=== PATIENT | male | born 1935 | race Caucasian/White ===

== ENCOUNTER 2020-02-22 16:04 | Inpatient (IN) | payer MEDICARE ==
[~2020-02-22] VITALS: Ht 175.3 cm; Wt 98.4 kg
[~2020-02-22 16:04] MED LIST: ASPI-1053 PO; CALC-336 PO; CHOL100024 PO; FINA5TAB11 PO; LISI-604 PO; MULT-1085 PO; SIMV-42 PO; TERA10CA4 PO; UBID1CAP54 PO
[2020-02-22 17:54] LABS: BASOPHILS # (AUTO) 0.1 X10'3 (0-0.2); BASOPHILS % (AUTO) 0.7 % (0-1); EOSINOPHILS # (AUTO) 0.1 X10'3 (0-0.9); EOSINOPHILS % (AUTO) 1.8 % (0-6); HEMATOCRIT 49.1 % (42.0-52.0); HEMOGLOBIN 16.1 g/dl (14.0-17.9); LYMPHOCYTES # (AUTO) 0.7 X10'3 (1.1-4.8); LYMPHOCYTES % (AUTO) 8.8 % (21-51); MEAN CORPUSCULAR HEMOGLOBIN 30.4 PG (27.0-31.0); MEAN CORPUSCULAR HGB CONC 32.7 g/dL (33.0-36.5); MEAN CORPUSCULAR VOLUME 92.9 FL (78-98); MONOCYTES # (AUTO) 0.5 X10'3 (0-0.9); NEUTROPHILS # (AUTO) 6.3 X10'3 (1.8-7.7); NEUTROPHILS % (AUTO) 81.7 % (42-75); PLATELET COUNT 151 X10'3 (140-440); RED BLOOD COUNT 5.29 X10'6 (4.70-6.10); WHITE BLOOD COUNT 7.7 X10'3 (4.5-11.0)
[2020-02-22 18:16] LABS: ANION GAP 4 (8-16); BLOOD UREA NITROGEN 18 MG/DL (7-18); BUN/CREATININE RATIO 14.2 (5.4-32.0); C-REACTIVE PROTEIN 1.06 MG/DL (0.0-0.5); CALCIUM 9.7 MG/DL (8.5-10.1); CHLORIDE 107 MMOL/L (99-107); CREATININE 1.27 MG/DL (0.60-1.10); GLUCOSE 109 MG/DL (70-104); POTASSIUM 4.4 MMOL/L (3.5-5.1); SODIUM 144 MMOL/L (135-145); eGFR 54 ML/MIN
[2020-02-22] MEDS ORDERED: CefTRIAXone/D5W-Rocephin 1gm 50 ML IV ONE (19:00)
[2020-02-22] MEDS ORDERED: vancomycin/NS 1 GM ADD-VANTAGE 250 ML IV ONE (19:00)
--- NOTE | 2020-02-22 19:09 | NUR ---
patient being admitted , patient does not have med list verbalized has new phone that patient does not know and she would have the list called only phone # available [phone] went to [facility] it was full could not leave a message dr. mills aware
[2020-02-22] MEDS ORDERED: WARF3TAB8 PO (20:04)
[2020-02-22] MEDS ORDERED: mag hydrox/Alum hydrox/simeth 30ml oral suspension PO PRN (20:55)
[2020-02-22] MEDS ORDERED: acetaminophen 325mg tablet PO PRN (20:55)
[2020-02-22] MEDS ORDERED: potassium CL 10mEq/100ml bag 100 ML IV PRN ×2 (20:55)
[2020-02-22] MEDS ORDERED: magnesium hydroxide 30ml (MOM) UD suspension PO PRN (20:55)
[2020-02-22] MEDS ORDERED: potassium Cl 20 mEq SR tablet PO PRN (20:55)
[2020-02-22] MEDS ORDERED: ondansetron/PF 4mg/2ml inj IV PRN (20:55)
--- NOTE | 2020-02-22 21:48 | NUR ---
patient belongings glassess,cane,shoes shirt ,shorts ,plastic cards,watch
[2020-02-22 22:00] VITALS: BP 118/78
--- NOTE | 2020-02-23 06:57 | NUR ---
Patient in room [facility]. I have received report from night nurse walt and had the opportunity to ask questions and assume patient care.
[2020-02-23 08:00] VITALS: BP 116/73
[2020-02-23] MEDS ORDERED: warfarin 3mg tablet PO SCH (08:00)
[2020-02-23] MEDS ORDERED: heparin, porcine 5000 units/ml vial SQ SCH (08:00)
[2020-02-23] MEDS: K and/or MAG REPLACEMENT MC SCH ×2 (08:00→20:00)
[2020-02-23] MEDS: atorvastatin 10mg tablet PO SCH (08:00)
[2020-02-23] MEDS ORDERED: UBIDECARENONE PO SCH (08:00)
[2020-02-23] MEDS ORDERED: VIT E ACETATE PO SCH (08:00)
[2020-02-23] MEDS: furosemide 10 MG/1 ML 10ml inj IV SCH ×2 (08:30→20:31)
[2020-02-23] MEDS: calcium carbonate 500mg tablet PO SCH (08:33)
[2020-02-23] MEDS: cephalexin 250mg capsule PO SCH ×4 (08:33→21:55)
[2020-02-23] MEDS: multivitamins, therapeutics tablet PO SCH (08:33)
[2020-02-23] MEDS: terazosin 5mg capsule PO SCH (08:33)
[2020-02-23] MEDS: lisinopril 10 MG tablet PO SCH (08:34)
[2020-02-23] MEDS: vitamin D (cholecalciferol) 1,000 unit tablet PO SCH (08:34)
--- NOTE | 2020-02-23 09:15 | NUR ---
Notified Dr. Rapp of pt's INR 4.1. Waiting further instructions.
[2020-02-23] MEDS: finasteride 5mg tablet PO SCH (09:19)
[2020-02-23 10:14] LABS: BASOPHILS % (AUTO) 0.5 % (0-1); EOSINOPHILS # (AUTO) 0.1 X10'3 (0-0.9); EOSINOPHILS % (AUTO) 1.2 % (0-6); HEMATOCRIT 44.4 % (42.0-52.0); HEMOGLOBIN 14.4 g/dl (14.0-17.9); LYMPHOCYTES # (AUTO) 0.6 X10'3 (1.1-4.8); LYMPHOCYTES % (AUTO) 8.4 % (21-51); MEAN CORPUSCULAR HEMOGLOBIN 30.3 PG (27.0-31.0); MEAN CORPUSCULAR HGB CONC 32.5 g/dL (33.0-36.5); MEAN CORPUSCULAR VOLUME 93.1 FL (78-98); MEAN PLATELET VOLUME 9.2 FL (7.4-10.4); MONOCYTES # (AUTO) 0.5 X10'3 (0-0.9); MONOCYTES % (AUTO) 6.8 % (2-12); NEUTROPHILS # (AUTO) 5.6 X10'3 (1.8-7.7); NEUTROPHILS % (AUTO) 83.1 % (42-75); PLATELET COUNT 135 X10'3 (140-440); RED BLOOD COUNT 4.77 X10'6 (4.70-6.10); RED CELL DISTRIBUTION WIDTH 15.1 % (11.5-14.5); WHITE BLOOD COUNT 6.8 X10'3 (4.5-11.0)
[2020-02-23 10:25] LABS: ALANINE AMINOTRANSFERASE 25 U/L (12-78); ALBUMIN 3.1 G/DL (3.4-5.0); ALBUMIN/GLOBULIN RATIO 0.9 (1.1-1.5); ALKALINE PHOSPHATASE 75 IU/L (46-116); ANION GAP 5 (8-16); ASPARTATE AMINO TRANSFERASE 19 U/L (10-37); BILIRUBIN,TOTAL 1.1 MG/DL (0.1-1.0); BLOOD UREA NITROGEN 19 MG/DL (7-18); BUN/CREATININE RATIO 15.8 (5.4-32.0); CALCIUM 8.7 MG/DL (8.5-10.1); CHLORIDE 107 MMOL/L (99-107); GLUCOSE 144 MG/DL (70-104); POTASSIUM 3.9 MMOL/L (3.5-5.1); SODIUM 145 MMOL/L (135-145); TOTAL CARBON DIOXIDE 33.1 MMOL/L (24-32); TOTAL PROTEIN 6.7 G/DL (6.4-8.2); eGFR 57 ML/MIN
[2020-02-23 12:00] VITALS: BP 108/59
--- NOTE | 2020-02-23 17:45 | NUR ---
Problems reprioritized. Patient report given, questions answered & plan of care reviewed with NURSE BRANDIN.
[2020-02-23 18:00] VITALS: BP 95/71
--- NOTE | 2020-02-23 18:16 | NUR ---
Problems reprioritized. Patient report given, questions answered & plan of care reviewed with GLORIA Prather.
--- NOTE | 2020-02-23 19:21 | NUR ---
Patient in room [facility]. I have received report from Dianna CASTRO and had the opportunity to ask questions and assume patient care.
[2020-02-24] VITALS: BP 100/60
[2020-02-24 05:34] LABS: BASOPHILS % (AUTO) 0.5 % (0-1); EOSINOPHILS # (AUTO) 0.2 X10'3 (0-0.9); EOSINOPHILS % (AUTO) 1.8 % (0-6); HEMOGLOBIN 14.8 g/dl (14.0-17.9); LYMPHOCYTES % (AUTO) 11.8 % (21-51); MEAN CORPUSCULAR HEMOGLOBIN 30.7 PG (27.0-31.0); MEAN CORPUSCULAR HGB CONC 32.8 g/dL (33.0-36.5); MEAN CORPUSCULAR VOLUME 93.4 FL (78-98); MEAN PLATELET VOLUME 9.4 FL (7.4-10.4); MONOCYTES # (AUTO) 0.6 X10'3 (0-0.9); MONOCYTES % (AUTO) 7.4 % (2-12); NEUTROPHILS # (AUTO) 6.5 X10'3 (1.8-7.7); NEUTROPHILS % (AUTO) 78.5 % (42-75); PLATELET COUNT 142 X10'3 (140-440); RED BLOOD COUNT 4.82 X10'6 (4.70-6.10); RED CELL DISTRIBUTION WIDTH 14.9 % (11.5-14.5); WHITE BLOOD COUNT 8.3 X10'3 (4.5-11.0)
[2020-02-24 05:39] LABS: ALANINE AMINOTRANSFERASE 23 U/L (12-78); ALBUMIN 3.1 G/DL (3.4-5.0); ALBUMIN/GLOBULIN RATIO 0.8 (1.1-1.5); ALKALINE PHOSPHATASE 74 IU/L (46-116); ANION GAP 4 (8-16); ASPARTATE AMINO TRANSFERASE 18 U/L (10-37); BILIRUBIN,TOTAL 1.2 MG/DL (0.1-1.0); BLOOD UREA NITROGEN 24 MG/DL (7-18); BUN/CREATININE RATIO 16.3 (5.4-32.0); CALCIUM 8.8 MG/DL (8.5-10.1); CHLORIDE 105 MMOL/L (99-107); CREATININE 1.47 MG/DL (0.60-1.10); GLUCOSE 113 MG/DL (70-104); POTASSIUM 3.7 MMOL/L (3.5-5.1); SODIUM 146 MMOL/L (135-145); TOTAL PROTEIN 6.8 G/DL (6.4-8.2); eGFR 45 ML/MIN
--- NOTE | 2020-02-24 06:25 | NUR ---
Problems reprioritized. Patient report given, questions answered & plan of care reviewed with SHANTI RN.
[2020-02-24] MEDS: furosemide 10 MG/1 ML 10ml inj IV SCH (07:22)
[2020-02-24] MEDS: lisinopril 10 MG tablet PO SCH (07:23)
[2020-02-24] MEDS: vitamin D (cholecalciferol) 1,000 unit tablet PO SCH (07:28)
[2020-02-24] MEDS: calcium carbonate 500mg tablet PO SCH (07:28)
[2020-02-24] MEDS: multivitamins, therapeutics tablet PO SCH (07:28)
[2020-02-24] MEDS: cephalexin 250mg capsule PO SCH ×4 (07:29→20:11)
[2020-02-24] MEDS: terazosin 5mg capsule PO SCH (07:29)
[2020-02-24] MEDS: finasteride 5mg tablet PO SCH (07:36)
[2020-02-24 07:41] VITALS: BP 127/71
[2020-02-24] MEDS: atorvastatin 10mg tablet PO SCH (07:41)
[2020-02-24] MEDS: K and/or MAG REPLACEMENT MC SCH ×2 (08:00→20:00)
[2020-02-24] MEDS ORDERED: aspirin 81mg tab.chew PO SCH (08:00)
[2020-02-24 12:00] VITALS: BP 103/72
[2020-02-24 18:00] VITALS: BP 101/64
--- NOTE | 2020-02-24 18:19 | NUR ---
Problems reprioritized. Patient report given, questions answered & plan of care reviewed with GLORIA Prather.
--- NOTE | 2020-02-24 18:21 | NUR ---
Patient in room [facility]. I have received report from Dianna CASTRO and had the opportunity to ask questions and assume patient care.
[2020-02-24] MEDS: furosemide 40mg/4ml inj IV SCH (20:11)
[2020-02-24] MEDS: lactobacillus rhamnosus 10,000 MMU CELLS/CAPSULE PO SCH (20:11)
[2020-02-24] MEDS ORDERED: warfarin 1mg tablet PO ONE (21:00)
[2020-02-25] VITALS: BP 104/59
[2020-02-25 05:50] LABS: BASOPHILS % (AUTO) 0.3 % (0-1); EOSINOPHILS # (AUTO) 0.2 X10'3 (0-0.9); HEMATOCRIT 42.6 % (42.0-52.0); HEMOGLOBIN 14.1 g/dl (14.0-17.9); LYMPHOCYTES # (AUTO) 0.6 X10'3 (1.1-4.8); LYMPHOCYTES % (AUTO) 8.3 % (21-51); MEAN CORPUSCULAR HEMOGLOBIN 30.4 PG (27.0-31.0); MEAN CORPUSCULAR VOLUME 92.2 FL (78-98); MEAN PLATELET VOLUME 9.4 FL (7.4-10.4); MONOCYTES # (AUTO) 0.7 X10'3 (0-0.9); MONOCYTES % (AUTO) 9.5 % (2-12); NEUTROPHILS # (AUTO) 6.2 X10'3 (1.8-7.7); NEUTROPHILS % (AUTO) 79.9 % (42-75); PLATELET COUNT 139 X10'3 (140-440); RED BLOOD COUNT 4.62 X10'6 (4.70-6.10); RED CELL DISTRIBUTION WIDTH 14.5 % (11.5-14.5); WHITE BLOOD COUNT 7.7 X10'3 (4.5-11.0)
--- NOTE | 2020-02-25 05:50 | NUR ---
WOUND CARE DRESSING PERFORMED Addendum: 02/25/20 at 0550 by Yamilka Antony RN Amended: Links added.
[2020-02-25 06:13] LABS: ANION GAP 4 (8-16); CHLORIDE 105 MMOL/L (99-107); GLUCOSE 112 MG/DL (70-104); POTASSIUM 3.4 MMOL/L (3.5-5.1); SODIUM 144 MMOL/L (135-145); TOTAL CARBON DIOXIDE 34.7 MMOL/L (24-32)
[2020-02-25 06:14] LABS: ALANINE AMINOTRANSFERASE 24 U/L (12-78); ALBUMIN 2.9 G/DL (3.4-5.0); ALBUMIN/GLOBULIN RATIO 0.9 (1.1-1.5); ALKALINE PHOSPHATASE 67 IU/L (46-116); ASPARTATE AMINO TRANSFERASE 19 U/L (10-37); BILIRUBIN,TOTAL 1.3 MG/DL (0.1-1.0); BLOOD UREA NITROGEN 30 MG/DL (7-18); CALCIUM 8.6 MG/DL (8.5-10.1); CREATININE 1.43 MG/DL (0.60-1.10); TOTAL PROTEIN 6.3 G/DL (6.4-8.2); eGFR 47 ML/MIN
--- NOTE | 2020-02-25 06:28 | NUR ---
Problems reprioritized. Patient report given, questions answered & plan of care reviewed with ALMA RN.Patient is awake watching TV.
--- NOTE | 2020-02-25 06:35 | NUR ---
Patient in room [facility]. I have received report from Yamilka CASTRO and had the opportunity to ask questions and assume patient care.
--- NOTE | 2020-02-25 06:52 | NUR ---
Patient in room [facility]. I have received report from GLORIA Prather and had the opportunity to ask questions and assume patient care.
[2020-02-25 07:25] VITALS: BP 118/77
[2020-02-25] MEDS: atorvastatin 10mg tablet PO SCH ×2 (08:00→08:18)
[2020-02-25] MEDS: lactobacillus rhamnosus 10,000 MMU CELLS/CAPSULE PO SCH ×2 (08:17→21:18)
[2020-02-25] MEDS: terazosin 5mg capsule PO SCH (08:17)
[2020-02-25] MEDS: vitamin D (cholecalciferol) 1,000 unit tablet PO SCH (08:17)
[2020-02-25] MEDS: calcium carbonate 500mg tablet PO SCH (08:17)
[2020-02-25] MEDS: lisinopril 10 MG tablet PO SCH (08:17)
[2020-02-25] MEDS: cephalexin 250mg capsule PO SCH ×4 (08:18→21:18)
[2020-02-25] MEDS: potassium Cl 20 mEq SR tablet PO PRN ×3 (08:18→17:08)
[2020-02-25] MEDS: multivitamins, therapeutics tablet PO SCH (08:18)
[2020-02-25] MEDS: furosemide 40mg/4ml inj IV SCH ×2 (08:19→21:18)
[2020-02-25] MEDS: finasteride 5mg tablet PO SCH (08:19)
[2020-02-25] MEDS: K and/or MAG REPLACEMENT MC SCH ×2 (08:29→20:00)
[2020-02-25 12:00] VITALS: BP 102/63
[2020-02-25] MEDS ORDERED: ipratropium/albuterol 3ml nebule NEB PRN (14:00)
[2020-02-25] MEDS: predniSONE 20 mg tablet PO SCH (15:02)
[2020-02-25] MEDS: ipratropium/albuterol 3ml nebule NEB SCH ×3 (15:05→23:13)
--- NOTE | 2020-02-25 17:42 | NUR ---
Problems reprioritized. Patient report given, questions answered & plan of care reviewed with Natali CASTRO.
[2020-02-25 18:00] VITALS: BP 135/90
--- NOTE | 2020-02-25 18:23 | NUR ---
Problems reprioritized. Patient report given, questions answered & plan of care reviewed with GLORIA Adames. Pt c/o SOB, expiratory wheezes throughout noted. New orders for breathing tx and prednisone PO. Pt condition improved significantly after tx.
[2020-02-25] MEDS ORDERED: warfarin 5mg tablet PO ONE (21:00)
[2020-02-25] MEDS: HYDROcodone/acetaminophen 5mg/325mg tablet PO PRN (23:42)
[2020-02-26] VITALS: BP 133/80
[2020-02-26 05:40] LABS: BASOPHILS % (AUTO) 0.1 % (0-1); EOSINOPHILS % (AUTO) 0.1 % (0-6); HEMOGLOBIN 14.3 g/dl (14.0-17.9); LYMPHOCYTES # (AUTO) 0.6 X10'3 (1.1-4.8); LYMPHOCYTES % (AUTO) 8.2 % (21-51); MEAN CORPUSCULAR HEMOGLOBIN 30.6 PG (27.0-31.0); MEAN CORPUSCULAR HGB CONC 33.3 g/dL (33.0-36.5); MEAN PLATELET VOLUME 9.6 FL (7.4-10.4); MONOCYTES # (AUTO) 0.3 X10'3 (0-0.9); MONOCYTES % (AUTO) 4.4 % (2-12); NEUTROPHILS # (AUTO) 5.9 X10'3 (1.8-7.7); NEUTROPHILS % (AUTO) 87.2 % (42-75); PLATELET COUNT 154 X10'3 (140-440); RED BLOOD COUNT 4.67 X10'6 (4.70-6.10); RED CELL DISTRIBUTION WIDTH 14.5 % (11.5-14.5); WHITE BLOOD COUNT 6.8 X10'3 (4.5-11.0)
[2020-02-26 06:03] LABS: ALANINE AMINOTRANSFERASE 25 U/L (12-78); ALBUMIN 2.8 G/DL (3.4-5.0); ALBUMIN/GLOBULIN RATIO 0.7 (1.1-1.5); ALKALINE PHOSPHATASE 71 IU/L (46-116); ANION GAP 9 (8-16); ASPARTATE AMINO TRANSFERASE 23 U/L (10-37); BILIRUBIN,TOTAL 0.9 MG/DL (0.1-1.0); BLOOD UREA NITROGEN 31 MG/DL (7-18); BUN/CREATININE RATIO 20.8 (5.4-32.0); CALCIUM 8.9 MG/DL (8.5-10.1); CHLORIDE 105 MMOL/L (99-107); CREATININE 1.49 MG/DL (0.60-1.10); GLUCOSE 207 MG/DL (70-104); POTASSIUM 3.9 MMOL/L (3.5-5.1); SODIUM 145 MMOL/L (135-145); TOTAL CARBON DIOXIDE 31.5 MMOL/L (24-32); TOTAL PROTEIN 6.7 G/DL (6.4-8.2); eGFR 45 ML/MIN
--- NOTE | 2020-02-26 06:59 | NUR ---
Problems reprioritized. Patient report given, questions answered & plan of care reviewed with Billie CASTRO.
[2020-02-26 07:00] VITALS: BP 129/72
[2020-02-26] MEDS: ipratropium/albuterol 3ml nebule NEB SCH ×5 (07:09→23:42)
[2020-02-26] MEDS: K and/or MAG REPLACEMENT MC SCH ×2 (08:00→20:00)
[2020-02-26] MEDS: calcium carbonate 500mg tablet PO SCH (08:01)
[2020-02-26] MEDS: furosemide 40mg/4ml inj IV SCH ×2 (08:01→20:11)
[2020-02-26] MEDS: cephalexin 250mg capsule PO SCH ×4 (08:02→20:12)
[2020-02-26] MEDS: atorvastatin 10mg tablet PO SCH (08:02)
[2020-02-26] MEDS: multivitamins, therapeutics tablet PO SCH (08:02)
[2020-02-26] MEDS: lactobacillus rhamnosus 10,000 MMU CELLS/CAPSULE PO SCH ×2 (08:02→20:12)
[2020-02-26] MEDS: vitamin D (cholecalciferol) 1,000 unit tablet PO SCH (08:02)
[2020-02-26] MEDS: predniSONE 20 mg tablet PO SCH (08:02)
[2020-02-26] MEDS: HYDROcodone/acetaminophen 5mg/325mg tablet PO PRN ×3 (08:03→20:12)
[2020-02-26] MEDS: terazosin 5mg capsule PO SCH (08:03)
[2020-02-26] MEDS: finasteride 5mg tablet PO SCH (08:04)
[2020-02-26] MEDS: lisinopril 10 MG tablet PO SCH (09:53)
[2020-02-26 09:54] VITALS: BP 112/58
--- NOTE | 2020-02-26 11:46 | NUR ---
Pt. has had a couple episodes of forgetfulness. Neuro checks intact and pt. denies any falls. Speech intact and no drooping of face. MD notified. Feels pt. may have some delirium from not being in his own environment. Orders to ambulate pt. and refer to PT.
[2020-02-26 12:00] VITALS: BP 110/74
[2020-02-26] MEDS: LIDOCAINE 5% OINTMENT 35GM TP PRN ×2 (12:32→22:40)
--- NOTE | 2020-02-26 18:45 | NUR ---
Patient in room [facility]. I have received report from Billie Mcrae and had the opportunity to ask questions and assume patient care. Addendum: 02/26/20 at 2120 by Halima Gregory RN Amended: Links added.
[2020-02-26 19:00] VITALS: BP 121/82
--- NOTE | 2020-02-26 19:14 | NUR ---
GAVE REPORT TO AMANDA CASTRO.
[2020-02-26] MEDS ORDERED: warfarin 3mg tablet PO ONE (21:00)
--- NOTE | 2020-02-26 21:00 | NUR ---
pt inc of urine skin care and complete bed change done with 2 people. pt in mood where he disagrees attempts to argue with the staff and had refused bed changed and we told him he is not able to stay wet it is bad for his skin. he finally allowed staff to clean him and change his bed.
[2020-02-26 23:57] VITALS: BP 105/74
--- NOTE | 2020-02-26 23:58 | NUR ---
pt resting without changes.
--- NOTE | 2020-02-27 00:49 | NUR ---
resting without changes.
--- NOTE | 2020-02-27 01:55 | NUR ---
pt inc of stool skin care done repositioned in bed tolerated well.
--- NOTE | 2020-02-27 04:18 | NUR ---
resting without changes.
[2020-02-27 05:30] LABS: BASOPHILS % (AUTO) 0.1 % (0-1); EOSINOPHILS % (AUTO) 0.2 % (0-6); LYMPHOCYTES # (AUTO) 0.6 X10'3 (1.1-4.8); LYMPHOCYTES % (AUTO) 7.6 % (21-51); MEAN CORPUSCULAR HEMOGLOBIN 30.8 PG (27.0-31.0); MEAN CORPUSCULAR HGB CONC 33.2 g/dL (33.0-36.5); MEAN CORPUSCULAR VOLUME 92.8 FL (78-98); MEAN PLATELET VOLUME 9.4 FL (7.4-10.4); MONOCYTES # (AUTO) 0.6 X10'3 (0-0.9); MONOCYTES % (AUTO) 7.4 % (2-12); NEUTROPHILS # (AUTO) 6.8 X10'3 (1.8-7.7); NEUTROPHILS % (AUTO) 84.7 % (42-75); PLATELET COUNT 149 X10'3 (140-440); RED BLOOD COUNT 4.53 X10'6 (4.70-6.10); RED CELL DISTRIBUTION WIDTH 14.2 % (11.5-14.5)
[2020-02-27 05:49] LABS: ALANINE AMINOTRANSFERASE 37 U/L (12-78); ALBUMIN 2.9 G/DL (3.4-5.0); ALBUMIN/GLOBULIN RATIO 0.8 (1.1-1.5); ALKALINE PHOSPHATASE 66 IU/L (46-116); ANION GAP 4 (8-16); ASPARTATE AMINO TRANSFERASE 29 U/L (10-37); BILIRUBIN,TOTAL 0.6 MG/DL (0.1-1.0); BLOOD UREA NITROGEN 38 MG/DL (7-18); BUN/CREATININE RATIO 29.7 (5.4-32.0); CALCIUM 8.7 MG/DL (8.5-10.1); CHLORIDE 106 MMOL/L (99-107); CREATININE 1.28 MG/DL (0.60-1.10); GLUCOSE 125 MG/DL (70-104); POTASSIUM 3.8 MMOL/L (3.5-5.1); SODIUM 145 MMOL/L (135-145); TOTAL CARBON DIOXIDE 34.6 MMOL/L (24-32); TOTAL PROTEIN 6.5 G/DL (6.4-8.2); eGFR 53 ML/MIN
--- NOTE | 2020-02-27 06:16 | NUR ---
Problems reprioritized. Patient report given, questions answered & plan of care reviewed with Heavenly Mcrae. Addendum: 02/27/20 at 0617 by Halima Gregory RN Amended: Links added.
--- NOTE | 2020-02-27 06:41 | NUR ---
Patient in room [facility]. I have received report from Halima CASTRO and had the opportunity to ask questions and assume patient care.
[2020-02-27] MEDS: ipratropium/albuterol 3ml nebule NEB SCH ×3 (06:54→15:00)
[2020-02-27 07:20] VITALS: BP 107/72
[2020-02-27] MEDS ORDERED: potassium Cl 20 mEq SR tablet PO SCH (08:00)
[2020-02-27] MEDS: K and/or MAG REPLACEMENT MC SCH (08:34)
[2020-02-27] MEDS: multivitamins, therapeutics tablet PO SCH (08:42)
[2020-02-27] MEDS: lisinopril 10 MG tablet PO SCH (08:42)
[2020-02-27] MEDS: vitamin D (cholecalciferol) 1,000 unit tablet PO SCH (08:42)
[2020-02-27] MEDS: terazosin 5mg capsule PO SCH (08:43)
[2020-02-27] MEDS: calcium carbonate 500mg tablet PO SCH (08:43)
[2020-02-27] MEDS: furosemide 40mg/4ml inj IV SCH (08:43)
[2020-02-27] MEDS: atorvastatin 10mg tablet PO SCH (08:43)
[2020-02-27] MEDS: predniSONE 20 mg tablet PO SCH (08:43)
[2020-02-27] MEDS: cephalexin 250mg capsule PO SCH ×2 (08:43→14:20)
[2020-02-27] MEDS: lactobacillus rhamnosus 10,000 MMU CELLS/CAPSULE PO SCH (08:43)
[2020-02-27] MEDS: finasteride 5mg tablet PO SCH (08:48)
[2020-02-27 11:00] VITALS: BP 98/59
[2020-02-27] MEDS ORDERED: PRED20TA PO (12:50)
[2020-02-27] MEDS ORDERED: POTA10TA36 PO (12:50)
[2020-02-27] MEDS ORDERED: CEPH500C2 PO (12:50)
[2020-02-27] MEDS ORDERED: FURO-150 PO (12:50)
--- NOTE | 2020-02-27 13:09 | NUR ---
Patient to be discharged after WC visit today.
--- NOTE | 2020-02-27 14:56 | NUR ---
WC in with patient. WC being completed.
[2020-02-27] MEDS ORDERED: warfarin 3mg tablet PO ONE (21:00)
--- NOTE | 2020-03-01 14:26 | NUR ---
Case Management DC follow up: spoke to pt via telephone. S/P: [facility] Cellulitis Reports: "doing ok, swelling in legs have gone down but cannot find calendar with all appts for the year". Pt agrees to ask [facility] 03/02/20 to assist w/scheduling follow up appt w/PCP and request any/all specialist names to call and confirm/schedule existing appts as pt states he had appts "through next year" pt also agreed to ask spouse for assistance. Pt SOB while talking, difficult to understand w/static/bad connection as well. Denies: acute/worsening cp, resp distress, vertigo, syncope,weakness, blurry vision, N/V, JERRY, emergent general pain, abd tenderness/distension. Verbalizes understanding of s/s that warrant 9-11/ER visit for evaluation. Verbalizes understanding of new Rx: Cephalexin, Lasix, K-Dur, Prednisone and why prescribed, resumes current Rx/taking as ordered, no ase r/t polypharmacy. Acknowledges need to schedule/keep follow up appts w/ PCP/Tessy per previous notes, will get assist w/scheduling appts. Needs met, questions answered at DC, no further questions at this time.
== END 2020-02-27 15:50 | disposition home health service (06) | DRG 602 ==
LOC: ER 16:04 → ED HOLD 20:55 → SUR 3N 22:10
PROVIDERS: ADMIT Internal Medicine; ATTEND Family Medicine
DX: L03.116 Cellulitis of left lower limb (principal); I50.31 Acute diastolic (congestive) heart failure; G93.41 Metabolic encephalopathy; E87.0 Hyperosmolality and hypernatremia; I25.10 Atherosclerotic heart disease of native coronary artery without angina pectoris; N18.9 Chronic kidney disease, unspecified; R41.0 Disorientation, unspecified; L03.115 Cellulitis of right lower limb; E78.5 Hyperlipidemia, unspecified; L53.9 Erythematous condition, unspecified; N40.0 Benign prostatic hyperplasia without lower urinary tract symptoms; Z79.01 Long term (current) use of anticoagulants; Z87.891 Personal history of nicotine dependence; Z95.1 Presence of aortocoronary bypass graft; Z79.899 Other long term (current) drug therapy
CPT/HCPCS: 36415; 73590; 80048; 80053; 83605; 83880; 84145; 85025; 85610; 85651; 86140; 87040; 87081; 93005; 93306; 94640; 94760; 97110; 97116; 97161; 97530; 97535; 99285; G0378; J0696; J1940; J3370; J7512